=== PATIENT | female | born 1980 | race Caucasian/White ===

== ENCOUNTER 2017-04-04 07:45 | Outpatient (CLI) | payer MEDICAID ==
[~2017-04-04] VITALS: Ht 160 cm; Wt 56.5 kg
[2017-04-04 08:04] VITALS: PULSE 19; RESP 19; Ht 160 cm; Wt 56.5 kg
[2017-04-04] MEDS ORDERED: PREN-93 PO (08:06)
--- NOTE | 2017-04-04 08:33 | RADRPT ---
PROCEDURE: Obstetric ultrasound CLINICAL INDICATION: Vaginal spotting TECHNIQUE: Multiple transverse and longitudinal grayscale images of the pelvis were obtained [place] sabdominally and transvaginally.. COMPARISON: same day FINDINGS: The cervix has a length of 3.1 cm. There is a trace amount of fluid within the cervix. There is a single viable intrauterine gestation. Cardiac activity is present with 150 beats per min [place]. There is a vertex presentation. The placenta is posterior. There is no evidence for an abruption or placenta previa. RPTAT: AA IMPRESSION: Cervix length measures 3.1 cm. Trace amount of fluid within the cervix. .Anuj Galindo MD, MD Date Time Electronically viewed and signed by .Anuj Galindo MD, on 04/04/2017 08:33 .S/
[2017-04-04 08:46] LABS: URINE BLOOD (Dip) POC Trace-lysed (NEGATIVE)
[2017-04-04 09:31] LABS: ADD UMIC YES; URINE BILIRUBIN (Dip) NEGATIVE (NEGATIVE); URINE BLOOD (Dip) TRACE (NEGATIVE); URINE COLOR LT. YELLOW (YELLOW); URINE GLUCOSE (Dip) NEGATIVE (NEGATIVE); URINE KETONES (Dip) NEGATIVE (NEGATIVE); URINE LEUKOCYTE ESTERASE (Dip) NEGATIVE (NEGATIVE); URINE NITRITE (Dip) NEGATIVE (NEGATIVE); URINE TOTAL PROTEIN (Dip) NEGATIVE (NEGATIVE); URINE UROBILINOGEN (Dip) 0.2 E.U./dL (0.1-1.0)
--- NOTE | 2017-04-04 09:40 | CONS ---
Date/Time of Note Date/Time of Note DATE: 04/04/17 TIME: 09:31 Consultation Date/Type/Reason Admit Date/Time April 04, 2017 OB triage consult Reason for Consultation This patient is a 37 years old 2 para 1 with estimated date of confinement of August 11, 2017 which makes her 21 weeks and 6 days now She came in to triage complaining of a vaginal spotting and a slight bleeding dark blood as of 1730 yesterday. No complaint of pain or contractions or any other symptoms on general reviewing of this patient she is a well-developed well-nourished with in no acute distress abdomen is soft no sign of contraction heart tone is normal but some variability no B-cell there is no sign of a tenderness of the abdomen or CVA Her general vital signs are normal blood pressure 111/73 pulse rate 86 respiration 19 and temperature 98.7 Her urine test is normal no evidence of infection there is just trace blood An ultrasound exam was performed and the report was single viable intrauterine gestation cervical length was 3.1 cm heart rate 150 bpm. Baby is vertex presentation and the placenta was posterior with no evidence of abruption or placenta previa I did a gentle pelvic exam cervix was closed thick and hard slight dark discharge which appears to be candidal type Laboratory Tests Test 04/04/17 08:40 04/04/17 08:48 Urine Color LT. YELLOW Urine Clarity CLEAR Urine pH 7.0 Urine Specific [place] <=1.005 Urine Ketones NEGATIVE Urine Nitrite NEGATIVE Urine Bilirubin NEGATIVE Urine Urobilinogen 0.2 E.U./dL Urine Leukocyte Esterase NEGATIVE Urine Microscopic RBC Pending Urine Microscopic WBC Pending Urine Hemoglobin TRACE Urine Glucose NEGATIVE% Urine Total Protein NEGATIVE Bedside Urine pH (LAB) 7.0 Bedside Urine Protein (LAB) Negative Bedside Urine Glucose (UA) Negative Bedside Urine Ketones (LAB) Negative Bedside Urine Blood Trace-lysed Bedside Urine Nitrite (LAB) Negative Bedside Urine Leukocyte Esterase (L Negative Constitutional: No chills, No diaphoresis, No disoriented, No febrile, No improved, No no complaints, No other, No poor po, No requiring IVF, No requiring O2 Eyes: No discharge, No no complaints, No other, No pain, No redness, No visual change ENT: No bleeding, No congestion, No discharge, No dysphagia, No no complaints, No other, No pain, No sore throat Respiratory: No cough, No no complaints, No other, No pain, No pleuritic pain, No shortness of breath, No sputum, No wheezing Cardiovascular: No chest pain, No edema, No lightheadedness, No no complaints, No orthopenea, No other, No palpitations, No paroxysmal nocturnal dyspnea Gastrointestinal: other, No blood, No constipation, No decreased appetite, No diarrhea, No flatus, No nausea, No no complaints, No pain, No passing stool, No vomiting Genitourinary: other (As I mentioned there is no true vaginal bleeding slight thick discharge. Cervix was closed and long), No bleeding, No discharge, No dysuria, No flank pain, No hematuria, No no complaints Musculoskeletal: No back pain, No bone/joint pain, No neck pain, No no complaints, No other, No restricted range of motion, No swelling Skin: No bruising, No erythema, No laceration, No no complaints, No other, No pruritis, No rash, No skin lesions Neurologic: No confusion, No dizziness, No focal-weakness, No headache, No no complaints, No other, No seizure, No syncope Endocrine: No dry skin, No no complaints, No other, No polydypsia, No polyuria , No temp intolerance Additional Comments With these negative finding patient was reassured and discharged home to return to clinic if any real bleeding or abdominal pain Social History Smoking Status: Never smoker Exam/Review of Systems Vital Signs Vitals Vital Signs Date Time Temp Pulse Resp B/P Pulse Ox O2 Delivery O2 Flow Rate FiO2 04/04/17 08:04 98.0 19 19 99 Room Air Results Results 24 hrs Laboratory Tests Test 04/04/17 08:48 Bedside Urine pH (LAB) 7.0 Bedside Urine Protein (LAB) Negative Bedside Urine Glucose (UA) Negative Bedside Urine Ketones (LAB) Negative Bedside Urine Blood Trace-lysed H Bedside Urine Nitrite (LAB) Negative Bedside Urine Leukocyte Esterase (L Negative LBAYNE NAYAK MD April 04, 2017 09:40
[2017-04-04 09:56] LABS: BACTERIA,URINE RARE; URINE RBCS 0-2 /HPF ([, 0])
--- NOTE | 2017-04-04 10:08 | TRIAGE ---
OB Triage Datetime Report Generated by CPN: 04/04/2017 10:08 Datetime: 04/04/2017 09:11 Stage of : OB Triage Maternal Assessment Level of Consciousness: Fully Conscious DTR's/Clonus: DTRs 1+ Headache: Denies Breath Sounds, Left: Clear and Equal Breath Sounds, Right: Clear and Equal Nausea/Vomiting: Denies RUQ Epigastric Pain: Denies Labor Evaluation Frequency: NONE Monitor Mode: External Resting Tone [place]: Relaxed Heart Rate FHR Baseline Rate: 145 Monitor Mode: External US Variability: Moderate 6-25 bpm Accelerations: 10X10 Decelerations: None Category: Category I Comments: REACTIVE ACCORDING TO AGE Pain Assessment Pain Presence: None/Denies Pain Type: N/A Vaginal Exam Membrane Status: Intact Datetime: 04/04/2017 08:13 Maternal Assessment Level of Consciousness: Fully Conscious DTR's/Clonus: DTRs 1+ Headache: Denies Blurred Vision: No Breath Sounds, Left: Clear and Equal Breath Sounds, Right: Clear and Equal Nausea/Vomiting: Denies RUQ Epigastric Pain: Denies Facial Edema: None Labor Evaluation Frequency: NONE Monitor Mode: External Resting Tone [place]: Relaxed Heart Rate FHR Baseline Rate: 145 Monitor Mode: External US Variability: Moderate 6-25 bpm Accelerations: 10X10 Decelerations: None Category: Category I Pain Assessment Pain Presence: None/Denies Pain Type: N/A Vaginal Exam Membrane Status: Intact Datetime: 04/04/2017 07:45 Time of Arrival: 04/04/2017 07:45 Arrived By: Wheelchair Arrived From: Home Chief Complaint: PT CAME IN C/O OF SPOTTING DARK BLOOD SINCE YESTERDAY AND STATED THAT SHE WAS VAG CHECKED ABOUT 5 DAYS AGO. DENIES HAVING SEX. Movement: Present Contractions: Denies/Absent Rupture of Membranes: Denies Vaginal Bleeding: Scant Vaginal Discharge: Denies Recent Sexual Intercouse: Denies Abdominal Trauma: Not Applicable Patient Complaints: Other Additional Patient Complaints: NONE Time Provider Notified: 04/04/2017 08:04 Provider Notified: DR HUNT/DIANA Initial Plan: MONITOR, CX LENGHT AND PLACENTA LOCATION, [facility]
== END 2017-04-04 09:30 | disposition home or self-care (01) ==
LOC: OBT 07:45 → L-D 07:46 → OBT 09:30
PROVIDERS: ATTEND Obstetrics & Gynecology
DX: O26.852 Spotting complicating pregnancy, second trimester (principal); O09.522 Supervision of elderly multigravida, second trimester; Z3A.21 21 weeks gestation of pregnancy
CPT/HCPCS: 76815; 76817; 81001; 81003; G0463

== ENCOUNTER 2017-07-20 10:06 | Outpatient (CLI) | payer MEDICAID ==
[~2017-07-20] VITALS: Ht 152.4 cm; Wt 63.6 kg
[~2017-07-20 10:06] MED LIST: PREN-93 PO
[2017-07-20 10:09] VITALS: Ht 152.4 cm; Wt 63.6 kg
[2017-07-20 10:22] VITALS: BP 102/58
--- NOTE | 2017-07-20 10:43 | RADRPT ---
PROCEDURE: US OB biophysical profile. CLINICAL INDICATION: decreased movements, gestational diabetes TECHNIQUE: Multiple sonographic images of the pelvis were obtained. The images were reviewed on a PACS workstation. COMPARISON: US PELVIS 04/04/2017 FINDINGS: There is a single viable intrauterine gestation. Cardiac activity is present with 137 beats per min [place] There is a vertex presentation. The placenta is anterior. There is no evidence of placental abruption. There is a normal amount of amniotic fluid with an MARISSA = 9.5 cm. Biophysical profile: movement 2/2 tone 2/2. breathing 2/2 MARISSA 2/2 Total 07/04 RPTAT: AA . IMPRESSION: Normal biophysical profile. . .Anuj Galindo MD, MD Date Time Electronically viewed and signed by .Anuj Galindo MD, MD on 07/20/2017 10:43 .S/
--- NOTE | 2017-07-20 12:36 | CONS ---
Date/Time of Note Date/Time of Note DATE: 07/20/17 TIME: 12:30 Consultation Date/Type/Reason Admit Date/Time July 20, 2017 OB triage consult Reason for Consultation This patient is a 37 years old 2 para 1 with estimated date of confinement of August 11, 2017 which makes her 36 weeks and 6 days today. During this she developed a gestational diabetes mellitus, currently diet controlled Came in to triage for further monitoring and evaluation On general examination, she is a well-developed well-nourished patient , near term, in no acute distress. Her general vital signs are normal ,with blood pressure of 102/58 ,pulse rate of 68, respirations 16, Temperature 38.4. On examination ; abdomen is soft, occasional contraction , heart tone is normal ,the tracing is reactive with the good variation and accelerations no decelerations Constitutional: No chills, No diaphoresis, No disoriented, No febrile, No improved, No no complaints, No other, No poor po, No requiring IVF, No requiring O2 Eyes: No discharge, No no complaints, No other, No pain, No redness, No visual change ENT: No bleeding, No congestion, No discharge, No dysphagia, No no complaints, No other, No pain, No sore throat Respiratory: No cough, No no complaints, No other, No pain, No pleuritic pain, No shortness of breath, No sputum, No wheezing Cardiovascular: No chest pain, No edema, No lightheadedness, No no complaints, No orthopenea, No other, No palpitations, No paroxysmal nocturnal dyspnea Gastrointestinal: No blood, No constipation, No decreased appetite, No diarrhea , No flatus, No nausea, No no complaints, No other, No pain, No passing stool, No vomiting Genitourinary: other (She did not have any evidence of labor for this reason pelvic examination was not performed), No bleeding, No discharge, No dysuria, No flank pain, No hematuria, No no complaints Musculoskeletal: No back pain, No bone/joint pain, No neck pain, No no complaints, No other, No restricted range of motion, No swelling Skin: No bruising, No erythema, No laceration, No no complaints, No other, No pruritis, No rash, No skin lesions Neurologic: No confusion, No dizziness, No focal-weakness, No headache, No no complaints, No other, No seizure, No syncope Endocrine: No dry skin, No no complaints, No other, No polydypsia, No polyuria , No temp intolerance Additional Comments An ultrasound was performed to further evaluate the condition of the baby . The report was a single viable intrauterine gestation, with cardiac activity 137 bpm, in vertex presentation ,placenta was anterior no evidence of abruption ,and a amniotic fluid index was reported as 9.5 cm Her biophysical profile was 8/8. With these finding patient was discharged home to be followed in [facility]. Social History Smoking Status: Never smoker Exam/Review of Systems Vital Signs Vitals Vital Signs Date Time Temp Pulse Resp B/P Pulse Ox O2 Delivery O2 Flow Rate FiO2 07/20/17 10:22 98.4 102/58 BLAYNE NAYAK MD Jul 20, 2017 12:36
== END 2017-07-20 12:30 | disposition home or self-care (01) ==
LOC: L-D 10:06 → OBT 10:06
PROVIDERS: ATTEND Obstetrics & Gynecology
DX: O24.410 Gestational diabetes mellitus in pregnancy, diet controlled (principal); Z3A.36 36 weeks gestation of pregnancy
CPT/HCPCS: 76818; 82962; Z7500; G0463

== ENCOUNTER 2017-07-27 16:09 | Inpatient (IN) | payer MEDICAID ==
[~2017-07-27] VITALS: Ht 152.4 cm; Wt 64.3 kg
[2017-07-27 16:50] VITALS: BP 101/61; PULSE 64
[2017-07-27] MEDS ORDERED: LACTATED RINGER'S 500 ML IV ONE (17:30)
[2017-07-27] MEDS: LACTATED RINGER'S 1,000 ML IV SCH (21:30)
--- NOTE | 2017-07-27 22:31 | RADRPT ---
PROCEDURE: US evaluation of amniotic fluid volume. CLINICAL INDICATION: Low amniotic fluid volume. TECHNIQUE: Multiple sonographic images of the gravid uterus were obtained utilizing hubbard-scale yun ging. Sagittal and transverse images were obtained. The images were reviewed on a PACS workstation . MARISSA was measured. COMPARISON: 07/20/2017. FINDINGS: There is a single live intrauterine . heart rate is 126 beats per minute. Position is cephalic. Placenta is anterior grade II with no abruption or previa. MARISSA is 6.4 cm. (Normal = 5-20 cm.) IMPRESSION: 1. MARISSA is 6.4 cm. RPTAT: QQ .Dwayne Cuba MD, Date Time Electronically viewed and signed by .Dwayne Cuba MD, on 07/27/2017 22:31 .R/
[2017-07-27] MEDS ORDERED: AL HYDROX/MG HYDROX/SIMETH 30 ML CUP PO PRN (23:30)
[2017-07-27] MEDS ORDERED: ACETAMINOPHEN 325 MG TAB PO PRN (23:30)
--- NOTE | 2017-07-28 00:07 | TRIAGE ---
OB Triage Datetime Report Generated by CPN: 07/28/2017 00:07 Datetime: 07/27/2017 23:10 Stage of : OB Triage Monitor Mode: External Pattern: Normal: <= 5 Contractions in 10 Minutes Resting Tone [place]: Relaxed Heart Rate FHR Baseline Rate: 135 Monitor Mode: External US FHR Baseline Changes: No Baseline Change Variability: Moderate 6-25 bpm Accelerations: 15X15 Decelerations: None Category: Category I Datetime: 07/27/2017 22:26 Stage of : OB Triage Monitor Mode: External Pattern: Normal: <= 5 Contractions in 10 Minutes Resting Tone [place]: Relaxed Heart Rate FHR Baseline Rate: 140 Monitor Mode: External US FHR Baseline Changes: No Baseline Change Variability: Moderate 6-25 bpm Accelerations: 15X15 Decelerations: None Category: Category I Pain Assessment Pain Scale: 0 Pain Presence: None/Denies Pain Type: N/A Pain Location: Abdomen Datetime: 07/27/2017 21:26 Stage of : OB Triage Resting Tone [place]: Relaxed Heart Rate FHR Baseline Rate: 130 Monitor Mode: External US FHR Baseline Changes: No Baseline Change Variability: Moderate 6-25 bpm Accelerations: 15X15 Decelerations: None Category: Category I Pain Assessment Pain Scale: 0 Pain Presence: None/Denies Pain Type: N/A Datetime: 07/27/2017 20:30 Stage of : OB Triage Quality: Mild Pattern: Normal: <= 5 Contractions in 10 Minutes Resting Tone [place]: Relaxed Heart Rate FHR Baseline Rate: 135 Monitor Mode: External US FHR Baseline Changes: No Baseline Change Variability: Moderate 6-25 bpm Accelerations: 15X15 Decelerations: None Category: Category I Datetime: 07/27/2017 19:30 Stage of : OB Triage Monitor Mode: External Quality: Mild Pattern: Normal: <= 5 Contractions in 10 Minutes Resting Tone [place]: Relaxed Heart Rate FHR Baseline Rate: 130 Monitor Mode: External US FHR Baseline Changes: No Baseline Change Variability: Moderate 6-25 bpm Accelerations: 15X15 Decelerations: None Category: Category I Pain Assessment Pain Scale: 0 Pain Presence: None/Denies Pain Type: N/A Datetime: 07/27/2017 17:58 Labor Evaluation Frequency: 0 Monitor Mode: External Pattern: Normal: <= 5 Contractions in 10 Minutes Resting Tone [place]: Relaxed Heart Rate FHR Baseline Rate: 135 Monitor Mode: External US Variability: Moderate 6-25 bpm Accelerations: 10X10 Decelerations: None Category: Category I Pain Assessment Pain Scale: 3 Pain Presence: None/Denies Pain Type: N/A Pain Location: Abdomen Pain Goal: 3 Pain Relief Measures: Comfort Measures Datetime: 07/27/2017 17:50 Labor Evaluation Frequency: 0 Monitor Mode: External Quality: Mild Pattern: Normal: <= 5 Contractions in 10 Minutes Resting Tone [place]: Relaxed Heart Rate FHR Baseline Rate: 135 Monitor Mode: External US Variability: Moderate 6-25 bpm Accelerations: 15X15 Decelerations: None Category: Category I Pain Assessment Pain Scale: 0 Pain Presence: None/Denies Pain Type: N/A Pain Location: Abdomen Pain Goal: 3 Pain Relief Measures: Comfort Measures Datetime: 07/27/2017 17:11 Stage of : OB Triage Datetime: 07/27/2017 16:44 Stage of : OB Triage Assessment Type: Triage Maternal Assessment Level of Consciousness: Fully Conscious DTR's/Clonus: DTRs 2+; No Clonus Headache: Denies Blurred Vision: No Respiratory Effort: Unlabored; Regular Rhythm; Equal Expansion Breath Sounds, Left: Clear and Equal Breath Sounds, Right: Clear and Equal Nausea/Vomiting: Denies RUQ Epigastric Pain: Denies Facial Edema: None Temperature Route: Axillary Fall Risk Assessment History of Falling: (0) No Secondary Diagnosis: (0) No Ambulatory Aid: (0) Bedrest/Nurse Assist IV Therapy: (0) No Gait: (0) Normal/Bedrest/Immobile Mental Status: (0) Oriented to Own Ability Fall Score: 0 Fall Risk Score Definition: No Risk: No action required Labor Evaluation Frequency: APPLIED Monitor Mode: External Resting Tone [place]: Relaxed Heart Rate FHR Baseline Rate: 140 Monitor Mode: External US Variability: Moderate 6-25 bpm Decelerations: None Pain Assessment Pain Scale: 0 Pain Presence: None/Denies Pain Type: N/A Pain Goal: 3 Pain Relief Measures: Comfort Measures Datetime: 07/27/2017 16:42 Time of Arrival: 07/27/2017 16:30 EGA: 37.6 Arrived By: Ambulatory Arrived From: Home Chief Complaint: SENT FROM [facility] TO R/O SROM. PERINATOLOGIST TODAY MARISSA 16, [facility] MARISSA 6.6 DENIES BLEEDING OR LEAKING Time Provider Notified: 07/27/2017 17:11 Provider Notified: Dr Scanlon Initial Plan: MONITOR, ROM PLUS, NITRAZINE Datetime: 07/20/2017 10:51 EGA: 36.6 Datetime: 07/20/2017 10:17 Fall Score: 0 Fall Risk Score Definition: No Risk: No action required
[2017-07-28] MEDS: LACTATED RINGER'S 1,000 ML IV SCH ×5 (00:33→23:13)
[2017-07-28] MEDS: FERROUS SULFATE (EC) 325 MG TAB PO SCH (09:30)
[2017-07-28] MEDS: PRENATAL VITAMIN PO SCH (09:30)
[2017-07-29] MEDS ORDERED: LACTATED RINGER'S 1,000 ML IV SCH (01:21)
[2017-07-29] MEDS ORDERED: IBUPROFEN 600 MG TAB PO PRN (01:30)
[2017-07-29] MEDS ORDERED: LIDOCAINE 1% (MPF) 30 ML INJ INJ PRN (01:30)
[2017-07-29] MEDS ORDERED: MISOPROSTOL 200 MCG TAB PR PRN (01:30)
[2017-07-29] MEDS ORDERED: OXYTOCIN 30 UNITS/LR 500 ML IV PRN (01:30)
[2017-07-29] MEDS ORDERED: OXYTOCIN 30 UNITS/LR 500 ML IV SCH ×3 (01:30→19:00)
[2017-07-29] MEDS ORDERED: CARBOPROST 250 MCG INJ IM PRN (01:30)
[2017-07-29] MEDS ORDERED: METHYLERGONOVINE 0.2 MG INJ IM PRN (01:30)
[2017-07-29] MEDS ORDERED: BUTORPHANOL 2 MG INJ IV PRN (01:30)
[2017-07-29] MEDS ORDERED: LACTATED RINGER'S 1,000 ML IV PRN (01:30)
[2017-07-29] MEDS ORDERED: MISOPROSTOL 25 MCG CAPSULE PO SCH ×2 (02:00→05:00)
[2017-07-29] MEDS: MISOPROSTOL 25 MCG CAPSULE PO SCH ×3 (02:19→15:26)
[2017-07-29] MEDS: LACTATED RINGER'S 1,000 ML IV SCH ×3 (02:20→20:46)
[2017-07-29 05:21] LABS: BASOPHILS % 0.6 % (0.0-2.0); EOSINOPHILS # 0.1 10^3/ul (0.0-0.5); EOSINOPHILS % 1.6 % (0.0-7.0); HEMATOCRIT 36.8 % (37.0-47.0); HEMOGLOBIN 12.2 g/dl (12.0-16.0); LYMPHOCYTES # 1.8 10^3/ul (0.8-2.9); LYMPHOCYTES % 26.7 % (15.0-51.0); MEAN CORPUSCULAR HEMOGLOBIN 29.1 pg (29.0-33.0); MEAN CORPUSCULAR HGB CONC 33.2 g/dl (32.0-37.0); MEAN CORPUSCULAR VOLUME 87.8 fl (82.0-101.0); MEAN PLATELET VOLUME 10.4 fl (7.4-10.4); MONOCYTE # 0.6 10^3/ul (0.3-0.9); MONOCYTES % 8.1 % (0.0-11.0); NEUTROPHILS % 62.6 % (39.0-77.0); PLATELET COUNT 226 10^3/UL (140-415); RED BLOOD COUNT 4.19 10^6/ul (4.20-5.40); RED CELL DISTRIBUTION WIDTH 14.6 % (11.5-14.5); WHITE BLOOD COUNT 6.8 10^3/ul (4.8-10.8)
[2017-07-29 05:44] LABS: INR 0.89; PT RATIO 0.9
[2017-07-29 05:45] LABS: PARTIAL THROMBOPLASTIN TIME 25.4 Sec (25.0-35.0)
--- NOTE | 2017-07-29 08:44 | PREOPHP ---
DATE OF ADMISSION: 08/01/2017 HISTORY OF PRESENT ILLNESS: The patient is a 37-year-old, 2, para 1, EDC 08/11/2017, intrauterine at 38 weeks gestational age. She was sent from Dr. Garcia's office yesterday to triage secondary to low MARISSA. The patient was given approximately 2 L of IV hydration. A repeat MARISSA was performed, which was persistently low at 6.4 cm. I discussed with Dr. Garcia the findings this morning and she recommended the patient to be delivered. The patient in this is gestational diabetes, diet controlled, GDM A1. She reports of occasional contractions. Her care took place at [facility]. PAST MEDICAL HISTORY: GDMA1 MEDICATIONS: vitamins. PAST SURGICAL HISTORY: None. OBSTETRIC HISTORY: OB history times 1, vaginal delivery 15 years ago. GYNECOLOGIC HISTORY: [age], regular 3 to 4 days. Denies any sexually transmitted disease. Sexually active with 1 partner. SOCIAL HISTORY: Denies any smoking, drugs, or alcohol. FAMILY HISTORY: None. REVIEW OF SYSTEMS: All within normal except history of present illness. PHYSICAL EXAMINATION: HEENT: Within normal. LUNGS: cta b/l. HEART: S1, S2. Regular rhythm. ABDOMEN: Gravid and nontender. Negative CVA bilateral. EXTREMITIES: Negative edema. No calf tenderness. GENITOURINARY: Vaginal examination, short and closed. heart tracing category 1 toco. Occasional contractions. ASSESSMENT: A 37-year-old, 2, para 1, anterior at 38 weeks gestational age, low amniotic fluid index, gestational diabetes mellitus A1, admitted for induction per perinatologist. PLAN: Start Cytotec regimen when labor and delivery room is available. Dictated By: José Ford MD /nanda/awilda /Document#: [id number] GENE
[2017-07-29] MEDS: PRENATAL VITAMIN PO SCH (10:04)
[2017-07-29] MEDS: FERROUS SULFATE (EC) 325 MG TAB PO SCH (10:04)
--- NOTE | 2017-07-29 18:43 | QN ---
Documentation Comment Progress note labor and delivery patient seen and evaluated awake alert oriented 3 No complaint Vital signs Abdomen gravid nontender negative severe bilateral Extremity negative edema no calf tenderness Vaginal exam /-3 heart rate category 1 [place] regular contract Assessment interim at 38 weeks gestational age low MARISSA currently on Cytotec for cervical ripening Plan start Pitocin after Cytotec regimen is complete MARGO ORTIZ MD Jul 29, 2017 18:43
[2017-07-29] MEDS ORDERED: FENTAnyl 2MCG/ML-ROPIV 0.2% 100 ML ONE (22:12)
[2017-07-30] MEDS ORDERED: MINERAL OIL LIGHT 10 ML VIAL ONE (01:30)
--- NOTE | 2017-07-30 01:58 | LDN ---
Date/Time of Note Date/Time of Note DATE: 07/30/17 TIME: 01:56 Delivery Summary Vacuum-assisted vaginal delivery secondary to maternal exhaustion/ distress +3 station 1 pull 10 seconds no complications Weeks of Gestation 38 Assisted Vaginal Delivery: Vacuum Placenta Delivered: Spontaneously Meconium: none Episiotomy: Yes Laceration repair: Right medial lateral episiotomy repaired with 3-0 and 2-0 chromic Anesthesia type: Epidural Estimated blood loss: 200 Sponge & Needle done & correct: Yes All needle counts correct: Yes Any foreign bodies felt in the: No Problems: Infant Delivery Information Sex Infant Sex: female Apgars 1 Minute: 8 5 Minute: 9 Suctioning Nose & mouth suctioned at charu: No Delee suction performed: No Umbilical Cord Umbilical cord with: 3 Vessels Cord presentations: no nuchal cord Cord Blood was obtained: Yes MARGO ORTIZ MD Jul 30, 2017 01:58
[2017-07-30] MEDS ORDERED: MINERAL OIL LIGHT 10 ML VIAL TOP ONE (02:00)
[2017-07-30 03:35] VITALS: BP 105/54; PULSE 63; RESP 20
[2017-07-30] MEDS ORDERED: OXYTOCIN 30 UNITS/LR 500 ML IV PRN (04:30)
[2017-07-30] MEDS ORDERED: SENNA/DOCUSATE NA (8.6MG/50MG) TAB PO PRN (04:30)
[2017-07-30] MEDS ORDERED: CARBOPROST 250 MCG INJ IM PRN (04:30)
[2017-07-30] MEDS ORDERED: MISOPROSTOL 200 MCG TAB PR PRN (04:30)
[2017-07-30] MEDS ORDERED: DIBUCAINE 1% 30 GM OINT PR PRN (04:30)
[2017-07-30] MEDS ORDERED: METHYLERGONOVINE 0.2 MG INJ IM PRN (04:30)
[2017-07-30] MEDS ORDERED: LANOLIN 7 GM TUBE TOP PRN (04:30)
[2017-07-30] MEDS ORDERED: HYDROCODONE/APAP (5/325) TAB PO PRN ×2 (04:30)
[2017-07-30] MEDS ORDERED: WITCH HAZEL/GLYCERIN PAD PR PRN (04:30)
[2017-07-30] MEDS ORDERED: BENZOCAINE 20% 56 ML SPRAY TOP PRN (04:30)
[2017-07-30] MEDS: LACTATED RINGER'S 1,000 ML IV* SCH ×2 (07:06)
[2017-07-30 08:00] VITALS: BP 105/60; PULSE 64; RESP 18
[2017-07-30 09:37] LABS: BASOPHILS % 0.4 % (0.0-2.0); EOSINOPHILS % 0.3 % (0.0-7.0); HEMATOCRIT 36.6 % (37.0-47.0); HEMOGLOBIN 12.7 g/dl (12.0-16.0); LYMPHOCYTES # 1.7 10^3/ul (0.8-2.9); LYMPHOCYTES % 15.4 % (15.0-51.0); MEAN CORPUSCULAR HEMOGLOBIN 30.4 pg (29.0-33.0); MEAN CORPUSCULAR HGB CONC 34.7 g/dl (32.0-37.0); MEAN CORPUSCULAR VOLUME 87.6 fl (82.0-101.0); MEAN PLATELET VOLUME 10.1 fl (7.4-10.4); MONOCYTES % 8.5 % (0.0-11.0); NEUTROPHILS % 75.1 % (39.0-77.0); PLATELET COUNT 201 10^3/UL (140-415); RED BLOOD COUNT 4.18 10^6/ul (4.20-5.40); RED CELL DISTRIBUTION WIDTH 14.4 % (11.5-14.5); WHITE BLOOD COUNT 11.1 10^3/ul (4.8-10.8)
[2017-07-30] MEDS: MAGNESIUM HYDROXIDE 30ML CUP PO SCH ×2 (10:16→21:10)
[2017-07-30 12:00] VITALS: BP 99/64; PULSE 59; RESP 18
[2017-07-30] MEDS: IBUPROFEN 600 MG TAB PO SCH ×2 (12:59→18:29)
[2017-07-30 16:00] VITALS: BP 93/55; PULSE 64; RESP 18
[2017-07-30 20:00] VITALS: BP 103/53; PULSE 65; RESP 20
[2017-07-31] MEDS: IBUPROFEN 600 MG TAB PO SCH ×5 (00:01→18:06)
[2017-07-31 04:00] VITALS: BP 91/55; PULSE 65; RESP 19
[2017-07-31 08:10] VITALS: BP 102/73; PULSE 86; RESP 20
[2017-07-31] MEDS: MAGNESIUM HYDROXIDE 30ML CUP PO SCH ×2 (09:00→21:00)
--- NOTE | 2017-07-31 09:43 | QN ---
Documentation Comment Progress note day 1 patient seen and evaluated awake alert oriented 3 No complaints positive ambulation tolerating diet positive flatulence positive bowel movement Vital signs stable Abdomen uterine fundus firm below umbilicus no distention nontender negative CVA bilateral Extremity negative edema no calf tenderness Assessment: Status post vacuum-assisted vaginal delivery day 1 Stable afebrile Plan: Discharge home tomorrow follow-up in the office in 3 weeks for care MARGO ORTIZ MD Jul 31, 2017 09:43
--- NOTE | 2017-07-31 09:44 | DS ---
Date/Time of Note Date/Time of Note DATE: 07/31/17 TIME: 09:43 Obstetrical Discharge Record Final Diagnosis Final Diagnosis: Term delivered Vaginal Delivery Obstetrical Delivery: Episiotomy, Repaired Condition on Discharge Physical Assessment Voiding: Yes Bowel Movement: Yes Breast: Soft, non-tender, Filling Fundus: Firm Calf Tenderness: No Patient Condition: Fair MARGO ORTIZ MD Jul 31, 2017 09:44
--- NOTE | 2017-07-31 09:45 | PD.PPDC ---
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
[2017-07-31 16:00] VITALS: BP 105/58; PULSE 70; RESP 20
[2017-07-31 20:00] VITALS: BP 111/64; PULSE 64; RESP 19
[2017-08-01] MEDS: IBUPROFEN 600 MG TAB PO SCH ×2 (00:03→05:39)
[2017-08-01 00:30] VITALS: BP 115/66; PULSE 67; RESP 19
[2017-08-01 04:50] VITALS: BP 98/57; PULSE 65; RESP 18
[2017-08-01 08:20] VITALS: BP 114/62; PULSE 82; RESP 18
[2017-08-01] MEDS: MAGNESIUM HYDROXIDE 30ML CUP PO SCH (09:00)
== END 2017-08-01 16:00 | disposition home or self-care (01) | DRG 775 ==
LOC: L-D 16:09 → OBT 16:09 → L-D 23:10 → OBG 23:51 → L-D 07-28 23:34 → PP1 07-30 03:40
PROVIDERS: ADMIT Obstetrics & Gynecology; ATTEND Obstetrics & Gynecology
PROC: 10D07Z6 Extraction of Products of Conception, Vacuum, Via Natural or Artificial Opening (ICD-10-PCS; principal; 2017-07-29)
PROC: 0W8NXZZ Division of Female Perineum, External Approach (ICD-10-PCS; 2017-07-29)
PROC: 3E0P7GC Introduction of Other Therapeutic Substance into Female Reproductive, Via Natural or Artificial Opening (ICD-10-PCS; 2017-07-29)
DX: O41.8X30 Other specified disorders of amniotic fluid and membranes, third trimester, not applicable or unspecified (principal); O24.410 Gestational diabetes mellitus in pregnancy, diet controlled; O75.81 Maternal exhaustion complicating labor and delivery; Z3A.38 38 weeks gestation of pregnancy; Z37.0 Single live birth
CPT/HCPCS: 36415; 62319; 76815; 82962; 84112; 85025; 85610; 85730; 86592; 86900; 86901; 96360; G0463; J2590; J3010; J7120